=== PATIENT | male | born 1950 | race Caucasian/White ===

== ENCOUNTER → 2019-02-06 13:18 | Outpatient (CLI) | payer OTHER, SELFPAY | DX: Z23 Encounter for immunization (principal) | CPT/HCPCS: 90471; 90662 ==

== ENCOUNTER 2022-08-30 17:09 | Emergency (ER) | payer OTHER, SELFPAY ==
--- NOTE | 2022-08-30 17:33 | DI.US.S_ITS ---
PROCEDURE: US PERIPH VENOUS LOW EXTREM LT INDICATIONS: post op knee replacment, pain/ swelling LLE TECHNIQUE: Real-time imaging, as well as color and pulse Doppler interrogation, were performed of the lower extremity deep veins from the inguinal ligament to the popliteal fossa. COMPARISON: None. FINDINGS: The common femoral, femoral and popliteal veins are normally compressible, and free of intraluminal thrombus. Color and pulse Doppler demonstrate normal phasic intraluminal flow. There is normal augmentation response to distal compression maneuver. IMPRESSION: Negative for deep venous thrombosis of the left lower extremity. Dictated by: Lamberto Cook M.D. on 08/30/2022 at 18:36 Approved by: Lamberto Cook M.D. on 08/30/2022 at 18:36
[2022-08-30 17:59] VITALS: BP 159/86; PULSE 86; RESP 18; TEMP 36.8; O2SAT 99
--- NOTE | 2022-08-30 19:41 | ED.EXTPRO ---
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 Sent here from orthopedic office for rule out DVT. He reports that he is not getting up very much although he is getting up some. No falls. Not on anticoagulation currently. Related Data Allergies Allergy/AdvReac Type Severity Reaction Status Date / Time No Known Drug Allergies Allergy Verified 08/30/22 17:59 Review of Systems Review of Systems ROS Unobtainable: All systems reviewed & are unremarkable except as noted in HPI and below Patient History Social History Smoking Status: Never smoker Smoking Status: Never smoker alcohol intake frequency: 0-2 drinks per day Substance Use Type: does not use Exam Initial Vital Signs Initial Vital Signs: Vital Signs Temperature 98.3 F 08/30/22 17:59 Pulse Rate 86 08/30/22 17:59 Respiratory Rate 18 08/30/22 17:59 Blood Pressure 159/86 H 08/30/22 17:59 Pulse Oximetry 99 08/30/22 17:59 Oxygen Delivery Method Room Air 08/30/22 17:59 GENERAL: Alert pleasant 71-year-old male appears well CARDIOVASCULAR: peripheral pulses in tact, cap refill <2 sec RESPIRATORY: No respiratory distress, speaks in full sentences without difficulty EXTREMITIES: Normal range of motion, no clubbing or edema. Neurovascularly intact Left leg swelling intact able to move calf is soft NEUROLOGICAL: Cranial nerves II through XII grossly intact. Normal gait and speech. SKIN: Warm, dry, no petechiae, no rashes or lesions. Course Orders Ordered: ED Orders 08/30/22 17:33 US periph venous low extrem lt Stat Vital Signs Vital signs: Vital Signs - 8 hr 08/30/22 19:45 Pulse Rate 90 Respiratory Rate 18 Blood Pressure 150/90 H Pulse Oximetry 98 MDM - Extremity (Nontraumatic) Imaging Data US - DVT: Radiologist's Impression: PROCEDURE:? US PERIPH VENOUS LOW EXTREM LT ? INDICATIONS:? post op knee replacment, pain/ swelling LLE ? TECHNIQUE:? Real-time imaging, as well as color and pulse Doppler interrogation, were performed of the lower extremity deep veins from the inguinal ligament to the popliteal fossa.? ? COMPARISON:? None. ? FINDINGS:? The common femoral, femoral and popliteal veins are normally compressible, and free of intraluminal thrombus.? Color and pulse Doppler demonstrate normal phasic intraluminal flow.? There is normal augmentation response to distal compression maneuver. ? ? IMPRESSION:? Negative for deep venous thrombosis of the left lower extremity. ? ? ? Dictated by: Lamberto Cook M.D. on 08/30/2022 at 18:36 ?? MDM Narrative Medical decision making narrative: Patient is 71-year-old male postop with left leg swelling. Sent rule out DVT by orthopedics. DVT ultrasound is negative. Orthopedics Dr. Galarza is updated on the results recommend ice and NSAIDs. Discharge Plan Departure Patient Disposition: Home Clinical Impression: Post-operative pain Instructions: DI for Postoperative Pain Activity Restrictions/Additional Instructions: *You have been diagnosed with postoperative pain and *What to do: Keep elevated and ice increase activity as tolerated move a little bit. Follow post up instructions *Continue to take medications as directed *Follow up with your primary care provider in 2-3 days or call [phone] *Return to ER if you should have increasing pain swelling shortness of breath [or] any new, worsening or concerning symptoms Referrals: Charles Bashir MD [Physician] - Gualberto Vivas MD [Primary Care Provider] - Shruti Vargas MD [Physician] - Stand Alone Forms: Patient Portal/API
[2022-08-30 19:45] VITALS: BP 150/90; PULSE 90; RESP 18; O2SAT 98
== END 2022-08-30 20:27 | disposition home or self-care (01) ==
PROVIDERS: Emergency Provider Emergency Medicine; PCP Family Medicine
DX: G89.18 Other acute postprocedural pain (principal)
CPT/HCPCS: 93971; 99283

== ENCOUNTER → 2022-09-12 14:04 | Outpatient (CLI) | payer MEDICARE, OTHER, SELFPAY ==
--- NOTE | 2022-09-12 14:12 | DI.US.S_ITS ---
PROCEDURE: US [facility] VENOUS LOW EXTREM LT INDICATIONS: LEG SWELLING TECHNIQUE: Real-time imaging, as well as color and pulse Doppler interrogation, were performed of the lower extremity deep veins from the inguinal ligament to the popliteal fossa. COMPARISON: [facility], [facility] VENOUS LOW EXTREM LT, 08/30/2022, 18:04. FINDINGS: The common femoral, femoral and popliteal veins are normally compressible, and free of intraluminal thrombus. Color and pulse Doppler demonstrate normal phasic intraluminal flow. There is normal augmentation response to distal compression maneuver. At the area of pain within the mid medial left calf, there is a nonvascular heterogeneous fluid collection that measures 7.2 x 3.6 x 10 cm. IMPRESSION: Negative for deep venous thrombosis. Presumed calf hematoma. Dictated by: Mook Stearns M.D. on 09/12/2022 at 15:34 Approved by: Mook Stearns M.D. on 09/12/2022 at 15:35
== END ==
PROVIDERS: PCP Family Medicine; Referring Provider Orthopaedic Surgery Foot and Ankle Surgery; Visit Provider Orthopaedic Surgery Foot and Ankle Surgery
DX: M79.89 Other specified soft tissue disorders (principal)
CPT/HCPCS: 93971

== ENCOUNTER 2022-09-12 15:51 | Emergency (ER) | payer OTHER, SELFPAY ==
[2022-09-12 16:27] VITALS: BP 161/99; PULSE 84; RESP 17; TEMP 36.6; O2SAT 99; BMI 29.8
--- NOTE | 2022-09-12 16:56 | ED_ITS ---
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 He continues to have left leg swelling and left calf pain. He was sent for rule out DVT by ultrasound outpatient orthopedics. Ultrasound is negative for DVT but does show a probable hematoma. Patient was also seen evaluated by myself on August 30 for the same at that time ultrasound was also negative. Patient does not have fever or chills. While he has been waiting and throughout the day the swelling has gotten significantly worse. However his leg has been down. He does use a walker sometimes at home. Dr. Galarza orthopedics called and spoke with me concern for possible large hematoma, is requesting a CT to see if it would need drainage. Related Data Home Medications Medication Instructions Recorded Confirmed aspirin 81 mg tablet,delayed 81 mg PO DAILY 09/12/22 09/12/22 release ibuprofen 800 mg tablet 800 mg PO Q6H 09/12/22 09/12/22 oxycodone-acetaminophen 5 mg-325 tab 09/12/22 mg tablet Previous Rx's Medication Instructions Recorded oxycodone-acetaminophen 5 mg-325 1 tab PO Q6H PRN pain #10 tabs 09/12/22 mg tablet (Percocet) Allergies Allergy/AdvReac Type Severity Reaction Status Date / Time No Known Drug Allergies Allergy Verified 09/12/22 16:32 Review of Systems Review of Systems ROS Unobtainable: All systems reviewed & are unremarkable except as noted in HPI and below Patient History Social History Smoking Status: Never smoker Smoking Status: Never smoker alcohol intake frequency: 0-2 drinks per day Substance Use Type: does not use Exam Initial Vital Signs Initial Vital Signs: Vital Signs Temperature 98 F 09/12/22 16:27 Pulse Rate 84 09/12/22 16:27 Respiratory Rate 17 09/12/22 16:27 Blood Pressure 161/99 H 09/12/22 16:27 Pulse Oximetry 99 09/12/22 16:27 Oxygen Delivery Method Room Air 09/12/22 16:27 GENERAL: Alert very pleasant year old male CARDIOVASCULAR: peripheral pulses in tact, cap refill <2 sec RESPIRATORY: No respiratory distress, speaks in full sentences without difficulty EXTREMITIES: Normal range of motion, no clubbing or edema. Neurovascularly intact Left calf is quite swollen no erythema distal pulse is felt he is able to move toes without excruciating pain. Pain is certainly not out of proportion NEUROLOGICAL: Cranial nerves II through XII grossly intact. Normal gait and speech. SKIN: Warm, dry, no petechiae, no rashes or lesions. Course Orders Ordered: Discontinued Medications Hydromorphone HCl (Hydromorphone 0.5 Mg Inj) 0.5 mg IV NOW ONE Stop: 09/12/22 19:47 Last Admin: 09/12/22 19:55 Dose: 0.5 mg Documented By: SB Vital Signs Vital signs: Vital Signs - 8 hr 09/12/22 16:27 Temperature 98 F Pulse Rate 84 Respiratory Rate 17 Blood Pressure 161/99 H Pulse Oximetry 99 Oxygen Delivery Method Room Air MDM - Extremity (Nontraumatic) Lab Data 09/12/22 17:20 09/12/22 17:20 Labs: Lab Results 09/12/22 09/12/22 09/12/22 Range/Units 17:20 17:20 17:20 WBC 6.7 (4.5-11.0) X10^3/uL RBC 4.49 L (4.5-5.9) X10^6/uL Hgb 14.2 (13.5-17.5) g/dL Hct 40.1 L (41-53) % MCV 89.4 (80-100) fL MCH 31.6 (26-34) PG MCHC 35.3 (30-36) % RDW 13.9 (11.6-14.8) % Plt Count 378 (150-400) X10^3/uL Neut % (Auto) 63.8 (50-75) % Lymph % (Auto) 22.3 L (25-40) % Faulk % (Auto) 11.3 (3-14) % Eos % (Auto) 1.8 L (2-4) % Baso % (Auto) 0.8 (0-2) % Neut # (Auto) 4300 (5567-4258) /uL Lymph # (Auto) 1500 (5369-6013) /uL Faulk # (Auto) 800 (0-900) /uL Eos # (Auto) 100 (0-450) /uL Baso # (Auto) 100 (0-100) /uL Sodium 139 (137-145) mmol/L Potassium 3.9 (3.4-5.1) mmol/L Chloride 102 (98-107) mmol/L Carbon Dioxide 29 (22-32) mmol/L BUN 22 H (9-20) mg/dL Creatinine 0.86 (0.66-1.25) mg/dL Estimated GFR > 60 (>60) mL/min BUN/Creatinine Ratio 25.6 H (6-22) Glucose 83 (80-110) mg/dL Calcium 9.0 (8.4-10.2) mg/dL Total Bilirubin 0.2 (0.2-1.3) mg/dL AST 31 (17-59) IU/L ALT 31 (<50) IU/L Alkaline Phosphatase 61 (38-126) U/L Total Creatine Kinase 103 (55-170) U/L Total Protein 7.6 (6.3-8.2) g/dL Albumin 4.3 (3.5-5.0) g/dL Globulin 3.3 (1.7-4.1) g/dL Albumin/Globulin Ratio 1.3 (1.0-2.8) Imaging Data US - DVT: Radiologist's Impression: PROCEDURE:? US [facility] VENOUS LOW EXTREM LT ? INDICATIONS:? LEG SWELLING ? TECHNIQUE:? Real-time imaging, as well as color and pulse Doppler interrogation, were performed of the lower extremity deep veins from the inguinal ligament to the popliteal fossa.? ? COMPARISON:? [facility], , US PERIP VENOUS LOW EXTREM LT, 08/30/2022, 18 :04. ? FINDINGS:? The common femoral, femoral and popliteal veins are normally compressible, and free of intraluminal thrombus.? Color and pulse Doppler demonstrate normal phasic intraluminal flow.? There is normal augmentation response to distal compression maneuver. ? ? At the area of pain within the mid medial left calf, there is a nonvascular heterogeneous fluid collection that measures 7.2 x 3.6 x 10 cm. ? ? ? IMPRESSION:? ? Negative for deep venous thrombosis. ? Presumed calf hematoma. ? ? CT LE: Radiologist's Impression: PROCEDURE:? CT LE LT W CON ? INDICATIONS:? hematoma post op ? TECHNIQUE:? After the administration of intravenous contrast, 3 mm axial sections acquired of the left , with coronal and sagittal reformats. ? ? COMPARISON:? None. ? FINDINGS:? ? ? Diffuse subcutaneous and deep edema in the left distal thigh and calf.? ? In the medial calf musculature centered at image 3/290, there is an intramuscular fluid collection measuring 2.8 x 1.2 by 3.8 cm which appears in capsulated.? Additional smaller fluid collections intramuscular noted in the proximal calf at the level of image 3-L1-L5. ?There is irregular enhancement of the proximal gastrocnemius muscle? ? IMPRESSION: ? 1. Irregular enhancement of the gastrocnemius muscle with focal intramuscular in capsulated fluid collection suspicious for myositis with developing multifocal abscess.? Differential would be intramuscular hematoma. ? 2. Diffuse subcutaneous edema? ? ? Approved by: Julio Atkinson M.D. on 09/12/2022 at 17:43? MDM Narrative Medical decision making narrative: Patient does have significant lower extremity swelling and pain postoperative. He is a couple weeks out from his surgery on seems to still be having some issues. He is does not have fever or leukocytosis. No concern for infection. There is no erythema or contusion noted on his calf. He is able to move his toes though there is significant swelling in his calf not concerned for compartment syndrome at this time. Leg is immediately elevated ice is placed. CT does show a collection of fluid 2.8 x 1.2 by 3.8 cm. There was questionable abscess however without fever leukocytosis or erythema I think unlikely more likely that it is a hematoma. I discussed results with Dr. Galarza who agrees that this is likely hematoma. She recommends outpatient follow-up in the next 1-2 days pain control elevation and ice. There was also possibility of myositis on CT however CPK is negative so on likely. Patient is having quite a bit of pain. reports that he was walking this morning he actually tried to do quite a bit he there yesterday or this morning. However while sitting waiting in the hospital in emergency department his leg has been down the swelling has gotten worse and he is in more pain. It is difficult for him to use walker and crutches secondary to his neurologic disorder. He is given a dose Dilaudid here. Discharge Plan Departure Patient Disposition: Home Clinical Impression: Hematoma Instructions: DI for Hematoma (Bruise) Activity Restrictions/Additional Instructions: *You have been diagnosed with the swelling is likely due to very deep bruising *What to do: There is a small chance that this could be a developing abscess or infection. Dr. Galarza is well aware she would like to see you this week in the office either tomorrow or the next day. Please call our office to schedule an appointment tomorrow. In the meantime keep elevated and ice as much as possible *Continue to take medications as directed *Follow up with your primary care provider in 2-3 days or call [phone] *Return to ER if you should have increasing pain swelling redness fever inability to move toes without excruciating pain [or] any new, worsening or concerning symptoms Prescriptions: New oxycodone-acetaminophen [Percocet] 5-325 mg tablet 1 tab PO Q6H PRN (Reason: pain) Qty: 10 0RF No Action ibuprofen 800 mg Tablet 800 mg PO Q6H aspirin [Aspir-81] 81 mg Tablet,Delayed Release (Dr/Ec) 81 mg PO DAILY oxycodone-acetaminophen 5-325 mg tablet Referrals: Shruti Vargas MD [Physician] - Gualberto Vivas MD [Primary Care Provider] - Stand Alone Forms: Patient Portal/API
[2022-09-12 17:42] LABS: Add Manual Diff / Slide Review NO; Basophils Absolute Auto 100 /uL (0-100); Basophils Percent Auto 0.8 % (0-2); Eosinophils Absolute Auto 100 /uL (0-450); Eosinophils Percent Auto 1.8 % (2-4); Hematocrit 40.1 % (41-53); Hemoglobin 14.2 g/dL (13.5-17.5); Lymphocytes Absolute Auto 1500 /uL (1100-4500); Lymphocytes Percent Auto 22.3 % (25-40); Mean Corpuscular HGB Conc 35.3 % (30-36); Mean Corpuscular Hemoglobin 31.6 PG (26-34); Mean Corpuscular Volume 89.4 fL (80-100); Monocytes Absolute Auto 800 /uL (0-900); Monocytes Percent Auto 11.3 % (3-14); Neutrophils Absolute Auto 4300 /uL (1500-7000); Neutrophils Percent Auto 63.8 % (50-75); Platelet Count 378 X10^3/uL (150-400); Red Blood Cell Count 4.49 X10^6/uL (4.5-5.9); Red Cell Distribution Width 13.9 % (11.6-14.8); White Blood Cell Count 6.7 X10^3/uL (4.5-11.0)
[2022-09-12 17:56] LABS: Alanine Aminotransferase 31 IU/L (<50); Albumin 4.3 g/dL (3.5-5.0); Albumin Globulin Ratio 1.3 (1.0-2.8); Alkaline Phosphatase 61 U/L (38-126); Aspartate Aminotransferase 31 IU/L (17-59); BUN Creatinine Ratio 25.6 (6-22); Bilirubin Total 0.2 mg/dL (0.2-1.3); Blood Urea Nitrogen 22 mg/dL (9-20); Carbon Dioxide 29 mmol/L (22-32); Chloride 102 mmol/L (98-107); Estimated Glomerular Filt Rate > 60 mL/min (>60); Globulin 3.3 g/dL (1.7-4.1); Glucose 83 mg/dL (80-110); HEMOLYSIS < 15 (0-50); Potassium 3.9 mmol/L (3.4-5.1); Sodium 139 mmol/L (137-145); Total Protein 7.6 g/dL (6.3-8.2)
--- NOTE | 2022-09-12 17:58 | DI.CT.S_ITS ---
PROCEDURE: CT LE LT W CON INDICATIONS: hematoma post op TECHNIQUE: After the administration of intravenous contrast, 3 mm axial sections acquired of the left , with coronal and sagittal reformats. COMPARISON: None. FINDINGS: Diffuse subcutaneous and deep edema in the left distal thigh and calf. In the medial calf musculature centered at image 3/290, there is an intramuscular fluid collection measuring 2.8 x 1.2 by 3.8 cm which appears in capsulated. Additional smaller fluid collections intramuscular noted in the proximal calf at the level of image 3-L1-L5. There is irregular enhancement of the proximal gastrocnemius muscle IMPRESSION: 1. Irregular enhancement of the gastrocnemius muscle with focal intramuscular in capsulated fluid collection suspicious for myositis with developing multifocal abscess. Differential would be intramuscular hematoma. 2. Diffuse subcutaneous edema Approved by: Julio Atkinson M.D. on 09/12/2022 at 17:43
[2022-09-12 19:27] LABS: Creatine Kinase 103 U/L (55-170)
[2022-09-12] MEDS: HYDROMORPHONE 0.5 MG INJ IV (19:55)
[2022-09-12 19:56] VITALS: BP 165/86; PULSE 83; RESP 18; O2SAT 99
--- NOTE | 2022-09-12 20:10 | PC.NURSE ---
Patient given IV pain medication, then assisted to ambulate down hallway with FWW. Patient tolerated walking well but reported much pain during ambulation. Patient does state he is confident he will be able to make it from car into his home with assistance and his states she will be calling a family/friend to come help upon their arrival home.
[2022-09-12 20:17] VITALS: BP 162/93; PULSE 87; RESP 18; O2SAT 98
== END 2022-09-12 20:22 | disposition home or self-care (01) ==
PROVIDERS: Emergency Provider Emergency Medicine; PCP Family Medicine
DX: M79.89 Other specified soft tissue disorders (principal); G89.18 Other acute postprocedural pain; M79.662 Pain in left lower leg
CPT/HCPCS: 36415; 73701; 80053; 82550; 85025; 93971; 96374; 99284; J1170

== ENCOUNTER 2022-09-15 13:20 | Day surgery (SDC) | payer OTHER, SELFPAY ==
[2022-09-15 14:38] VITALS: BP 159/94; PULSE 83; RESP 20; TEMP 36.3; O2SAT 98; BMI 29.8
[2022-09-15] MEDS: LACTATED RINGERS 1,000 ML 42 ML IV (14:48)
[2022-09-15] MEDS: ACETAMINOPHEN 325 MG TABLET 975 MG PO (14:52)
--- NOTE | 2022-09-15 16:13 | PM.PREOP ---
Pre-operative Note Interval Note History & Physical reviewed/Exam performed by Physician: Yes Changes to H&P: No
--- NOTE | 2022-09-15 17:07 | SUR.OPER ---
Supine on padded OR bed, head on pillow, arms secured on padded arm boards at <90 degrees abduction, legs uncrossed, safety belt at thigh, tape over blanket over RIGHT lower leg. Confirmed by Dr. Vargas
[2022-09-15] MEDS: BUPIVACAINE 0.25% (PF) 30 ML, EPINEPHrine 0.15 MG INJ (17:28)
[2022-09-15 17:35] VITALS: BP 162/104; PULSE 83; RESP 16; TEMP 35.9; O2SAT 97
[2022-09-15 17:39] VITALS: BP 156/103; PULSE 72; RESP 20; O2SAT 98
[2022-09-15 17:45] VITALS: BP 161/98; PULSE 70; RESP 12; O2SAT 98
[2022-09-15] MEDS: hydrOXYzine 50 MG/ML INJ 25 MG IM (17:54)
[2022-09-15] MEDS: OXYCODONE IR 5 MG TABLET PO (17:54)
[2022-09-15 17:56] VITALS: BP 165/104; PULSE 69; RESP 12; O2SAT 97
[2022-09-15 18:01] VITALS: BP 172/108; PULSE 70; RESP 16; O2SAT 97
--- NOTE | 2022-09-15 18:50 | P.OP_ITS ---
Operative Date/Time/Diagnoses Date of procedure: 09/15/22 Time of procedure: 18:50 Pre-op diagnosis: Hematoma left lower extremity Post-op diagnosis: same Procedure & Clinicians Procedure: Evacuation hematoma left lower leg CPT code 2763 hematoma left lower extremity CPT code 53384 Same procedure as scheduled: Yes Indications: Patient is a 72-year-old male that has had lower extremity swelling after a knee arthroscopic partial meniscectomy a couple weeks ago. He actually had 2 episodes of swelling 1 about 2 weeks ago and he had a negative duplex. Then he was doing better but then a few days ago had an acute episode of increased swelling and pain. He would a repeat duplex that was negative for DVT but did show a hematoma. He had a CT scan. He has been indicated for hematoma evacuation due to the size of the hematoma persistent swelling and pain. Been taking aspirin after his arthroscopy. He is not on any other anticoagulation. The risks and benefits of the procedure have been discussed with the patient and given the opportunity to ask questions. The risks of surgery include but are not limited to infection, malunion, nonunion, persistence of pain, damage to nerves and blood vessels, posttraumatic arthritis, DVT, PE, cardiopulmonary complications and . The patient expressed a thorough understanding of the risks and benefits of surgery and has elected to proceed. Consent was signed i. Surgeon: Shruti Vargas Click Yes if Unassisted: Yes Anesthesia Type: General and Local Operative Notes Findings: Hematoma proximal posterior calf was then and superficial to the medial gastroc. Hematoma coagulated blood. No active bleeding. Closure Type: primary Specimen(s): none sent Prosthetic devices, grafts, tissues, transplants, or devices: Medium Hemovac drain Applied: drain(s) (Medium Hemovac drain) Estimated Blood Loss (mL): 25 Blood products transfused: none Tourniquet time (min): 10 Procedure in detail: Patient is seen in the preoperative area the site of surgery was marked and informed consent confirmed. He was brought back to the operating room by the anesthesia team positioned supine on operative table. General anesthetic was administered. The left lower extremity was prepped and draped in a standard sterile fashion. Formal time-out procedure was performed confirming the patient's side and site of surgery administration of appropriate preoperative antibiotic. All were in agreement. Attention turned to the left calf. Patient was positioned in a figure 4 position. Esmarch was used for exsanguination and the tourniquet raised on the thigh. An incision proximally 2 cm off the posterior border of the medial tibia was made proximally 8 cm long centered over the area of most swelling in the proximal calf this was taken down through the skin and subcutaneous tissue. Care was taken to identify and protect the saphenous vein. The superficial deep compartment was then opened which demonstrated the hematoma. This was evacuated both clot and liquid hematoma. This was thoroughly irrigated and debrided. And created a visual decompression. Once this was completed and irrigated with sev eral L of fluid the tourniquet was released. There was no significant active bleeding. Hemostasis was achieved. A medium Hemovac drain was placed in line with the incision. And the incision was closed in a layered fashion with 3-0 Vicryl, 4-0 Monocryl and 3-0 nylon suture. Sterile dressing was placed with Xeroform gauze and Tegaderm. Drain was secured with a Tegaderm. Patient was woken from anesthesia and taken to recovery room in good condition. There no immediate complications from this procedure. All counts were correct. Complications: none Post-operative Condition: stable Disposition: PACU Plan for aftercare: Weightbear as tolerated. Medium Hemovac drain will stay in place 3 days. He will return to clinic on Sunday09/19/2022 for drain removal. May wrap and rewrap Ronaldo wrap as needed. Keep dressings otherwise dry.
== END 2022-09-15 18:38 | disposition home or self-care (01) ==
PROVIDERS: PCP Family Medicine; Referring Provider Orthopaedic Surgery Foot and Ankle Surgery; Visit Provider Orthopaedic Surgery Foot and Ankle Surgery
PROC: (CPT 27603; principal; 2022-09-15 14:30)
DX: M96.840 Postprocedural hematoma of a musculoskeletal structure following a musculoskeletal system procedure (principal)
CPT/HCPCS: 27603; J0171; J0690; J1100; J2405; J2704; J3010; J3410